=== PATIENT | female | born 1950 | race Caucasian/White ===

== ENCOUNTER 2018-06-14 17:41 | Inpatient (IN) ==
[2018-06-14] MEDS ORDERED: FUROSEMIDE 40 MG/4 ML VIAL ONE (17:50)
[2018-06-14] MEDS ORDERED: FUROSEMIDE 20 MG/2 ML VIAL ONE (17:51)
[2018-06-14] MEDS ORDERED: FUROSEMIDE 100 MG/10 ML VIAL IV STA (18:06)
[2018-06-14 18:29] LABS: Alanine Aminotransferase 38 U/L (13-56); Albumin 3.2 G/DL (3.4-5.0); Alkaline Phosphatase 95 U/L (45-117); Aspartate Amino Transferase 22 U/L (0-37); Bilirubin,Total < 0.39 MG/DL (0.2-1.0); Blood Urea Nitrogen 64 MG/DL (7-18); Calcium 8.4 MG/DL (8.5-10.1); Glucose 193 MG/DL (74-106); Osmolality,Calculated 299.5 MOS/KG (273-304); Sodium 139 MMOL/L (136-145); Total Protein 7.4 G/DL (6.4-8.3)
[2018-06-14 18:31] LABS: Basophils # 0.1 10*3/uL (0.0-0.2); Basophils % 0.6 % (0.0-0.8); Eosinophils % 0.2 % (0.00-10.9); Hematocrit 32.4 VOL% (35.7-47.0); Immature Granulocytes % 3.6 %; Immature Granulocytes Absolute 0.62 #; Lymphocytes # 1.6 10*3/uL (1.4-4.0); Lymphocytes % 9.4 % (21.3-54.2); Mean Corpuscular HGB Conc 27.8 GM/DL (32-36); Mean Corpuscular Hemoglobin 26 PG (27-34); Mean Corpuscular Volume 92.3 FL (87-102); Mean Platelet Volume 10.5 FL (9.6-12.0); Monocytes # 0.5 10*3/uL (0.11-0.8); Monocytes % 2.9 % (1.7-12.7); NRBC # 0.05 10*3/uL; Neutrophils # 14.5 10*3/uL (1.4-7.4); Neutrophils % 83.3 % (38.7-73.9); Platelet Count 248 T/CUMM (130-400); Red Blood Count 3.51 MC/CUMM (3.8-5.5); Red Cell Distribution Width 16.6 % (9.3-17.3); White Blood Count 17.4 T/CUMM (4-12)
[2018-06-14 18:32] LABS: INR 0.9
[2018-06-14] MEDS ORDERED: ETOMIDATE 20 MG/10 ML VIAL IV ONE (18:36)
[2018-06-14] MEDS ORDERED: ROCURONIUM 100 MG/10 ML VIAL IV ONE (18:37)
[2018-06-14] MEDS ORDERED: INSULIN REGULAR 100 UNIT/ML IV STA (18:44)
[2018-06-14] MEDS ORDERED: SODIUM BICARBONATE 50 MEQ/50 ML SYRINGE IV STA (18:44)
[2018-06-14] MEDS ORDERED: DEXTROSE 50% 25 GM/50 ML SYRINGE IV STA (18:44)
[2018-06-14] MEDS ORDERED: ALBUTEROL/IPRATROPIUM 3 ML NEB RESP TX PRN (18:57)
[2018-06-14] MEDS ORDERED: DEXTROSE 50% 25 GM/50 ML SYRINGE IV PRN (18:59)
[2018-06-14] MEDS ORDERED: GLUCAGON 1 MG VIAL IM PRN (18:59)
[2018-06-14] MEDS ORDERED: LEVOFLOXACIN INJ 750 MG in PREMIX 1 EACH IV SCH (19:00)
[2018-06-14] MEDS ORDERED: hydrALAZINE 20 MG/1 ML VIAL IV PRN (19:13)
[2018-06-14] MEDS ORDERED: SODIUM CHLORIDE 0.9% IV ONE (19:24)
[2018-06-14] MEDS ORDERED: AMINOPHYLLINE IV ONE (19:24)
[2018-06-14 19:38] LABS: Anisocytosis Slight; Lymphocytes 15 % (20-55); Myelocytes 1 %; Segmented Neutrophils 83 % (50-85); Total Cells Counted 100
[2018-06-14 19:39] LABS: Polychromasia Slight
[2018-06-14 19:41] LABS: Microcytosis Slight; Spherocytes Slight
[2018-06-14 19:42] LABS: Platelet Estimate Normal; Stomatocytes Few
[2018-06-14] MEDS: ALBUTEROL/IPRATROPIUM 3 ML NEB RESP TX SCH (20:08)
[2018-06-14] MEDS ORDERED: INSULIN REGULAR 100 UNIT/ML SUBCUT ONE (21:25)
[2018-06-14] MEDS ORDERED: SODIUM POLYSTYRENE SULFATE 15 GM/60 ML BOTTLE PO STA (21:27)
[2018-06-14] MEDS: methylPREDNISolone SOD SUC 40 MG/1 ML VIAL IV SCH (21:45)
[2018-06-14] MEDS: FUROSEMIDE 100 MG/10 ML VIAL IV SCH (21:45)
[2018-06-14] MEDS: ENOXAPARIN 40 MG/0.4 ML SYRINGE SUBCUT SCH (21:56)
[2018-06-15] MEDS: AMINOPHYLLINE 500 MG in SODIUM CHLORIDE 0.9% 480 ML IV SCH ×3 (00:48→22:36)
[2018-06-15] MEDS: PIPERACILLIN/TAZOBACTAM 3,375 MG in SODIUM CHLORIDE 0.9% 100 ML IV SCH ×3 (00:54→17:13)
[2018-06-15] MEDS: ALBUTEROL/IPRATROPIUM 3 ML NEB RESP TX SCH ×5 (01:06→23:58)
[2018-06-15] MEDS: NITROGLYCERIN 2% OINT 1 INCH/GM PACK TOP SCH ×4 (02:50→22:36)
[2018-06-15] MEDS: INSULIN REGULAR 100 UNIT/ML SUBCUT SCH ×4 (02:56→19:00)
[2018-06-15 03:49] LABS: Calcium 8.7 MG/DL (8.5-10.1); Thyroid Stimulating Hormone 1.34 uIU/ml (0.358-3.74)
[2018-06-15 04:01] LABS: Basophils # 0.1 10*3/uL (0.0-0.2); Basophils % 0.4 % (0.0-0.8); Eosinophils % 0.1 % (0.00-10.9); Hematocrit 30.7 VOL% (35.7-47.0); Immature Granulocytes % 3.9 %; Immature Granulocytes Absolute 0.54 #; Lymphocytes # 0.6 10*3/uL (1.4-4.0); Lymphocytes % 4.4 % (21.3-54.2); Mean Corpuscular Hemoglobin 26 PG (27-34); Mean Corpuscular Volume 91.4 FL (87-102); Mean Platelet Volume 10.4 FL (9.6-12.0); Monocytes # 0.1 10*3/uL (0.11-0.8); Monocytes % 0.9 % (1.7-12.7); NRBC # 0.06 10*3/uL; Neutrophils # 12.7 10*3/uL (1.4-7.4); Neutrophils % 90.3 % (38.7-73.9); Platelet Count 229 T/CUMM (130-400); Red Blood Count 3.36 MC/CUMM (3.8-5.5); Red Cell Distribution Width 16.4 % (9.3-17.3)
[2018-06-15 04:02] LABS: Hemoglobin 8.6 GM/DL (12.0-16.0)
[2018-06-15 04:33] LABS: Band Neutrophils 1 % (0-10); Lymphocytes 2 % (20-55); Segmented Neutrophils 97 % (50-85); Total Cells Counted 100
[2018-06-15 04:34] LABS: Anisocytosis 1+; Hypochromasia 1+; Platelet Estimate Adequate
[2018-06-15] MEDS: methylPREDNISolone SOD SUC 40 MG/1 ML VIAL IV SCH ×4 (06:19→22:31)
[2018-06-15] MEDS: FUROSEMIDE 100 MG/10 ML VIAL IV SCH ×4 (06:20→22:27)
[2018-06-15] MEDS: INSULIN GLARGINE 100 UNIT/ML SUBCUT SCH (09:59)
[2018-06-15] MEDS: ONDANSETRON 4 MG/2 ML VIAL IV PRN (16:25)
[2018-06-15] MEDS: ENOXAPARIN 40 MG/0.4 ML SYRINGE SUBCUT SCH (19:24)
[2018-06-15] MEDS: LORazepam 2 MG/1 ML VIAL IV PRN (22:33)
[2018-06-16] MEDS: INSULIN REGULAR 100 UNIT/ML SUBCUT SCH ×4 (00:56→18:08)
[2018-06-16] MEDS: PIPERACILLIN/TAZOBACTAM 3,375 MG in SODIUM CHLORIDE 0.9% 100 ML IV SCH ×2 (00:57→09:41)
[2018-06-16] MEDS: FUROSEMIDE 100 MG/10 ML VIAL IV SCH ×4 (03:30→21:59)
[2018-06-16] MEDS: methylPREDNISolone SOD SUC 40 MG/1 ML VIAL IV SCH ×4 (03:37→21:59)
[2018-06-16] MEDS: NITROGLYCERIN 2% OINT 1 INCH/GM PACK TOP SCH ×4 (03:39→21:59)
[2018-06-16 05:36] LABS: Calcium 8.5 MG/DL (8.5-10.1); Potassium 4.4 MMOL/L (3.5-5.1)
[2018-06-16 06:21] LABS: Basophils % 0.1 % (0.0-0.8); Eosinophils % 0.1 % (0.00-10.9); Hematocrit 30.9 VOL% (35.7-47.0); Hemoglobin 8.7 GM/DL (12.0-16.0); Immature Granulocytes % 2.8 %; Lymphocytes # 0.7 10*3/uL (1.4-4.0); Lymphocytes % 3.8 % (21.3-54.2); Mean Corpuscular HGB Conc 28.2 GM/DL (32-36); Mean Corpuscular Hemoglobin 25 PG (27-34); Mean Corpuscular Volume 90.1 FL (87-102); Mean Platelet Volume 10.4 FL (9.6-12.0); Monocytes # 0.7 10*3/uL (0.11-0.8); Monocytes % 3.8 % (1.7-12.7); NRBC # 0.12 10*3/uL; Neutrophils # 16.2 10*3/uL (1.4-7.4); Neutrophils % 89.4 % (38.7-73.9); Platelet Count 259 T/CUMM (130-400); Red Blood Count 3.43 MC/CUMM (3.8-5.5); Red Cell Distribution Width 16.6 % (9.3-17.3); White Blood Count 18.1 T/CUMM (4-12)
[2018-06-16 06:27] LABS: Lymphocytes 1 % (20-55); Segmented Neutrophils 97 % (50-85); Total Cells Counted 100
[2018-06-16 06:28] LABS: Hypochromasia 1+; Microcytosis 1+; Polychromasia Slight; Stomatocytes Slight
[2018-06-16] MEDS: ALBUTEROL/IPRATROPIUM 3 ML NEB RESP TX SCH ×2 (07:23→14:40)
[2018-06-16] MEDS: AMINOPHYLLINE 500 MG in SODIUM CHLORIDE 0.9% 480 ML IV SCH (07:44)
[2018-06-16] MEDS: INSULIN GLARGINE 100 UNIT/ML SUBCUT SCH (09:42)
[2018-06-16] MEDS ORDERED: KETOROLAC 15 MG/1 ML VIAL IV PRN (13:34)
[2018-06-16] MEDS ORDERED: traMADol 50 MG TABLET PO PRN (15:59)
[2018-06-16] MEDS: ENOXAPARIN 40 MG/0.4 ML SYRINGE SUBCUT SCH (18:08)
[2018-06-16] MEDS: ONDANSETRON 4 MG/2 ML VIAL IV PRN (19:27)
[2018-06-17] MEDS: INSULIN REGULAR 100 UNIT/ML SUBCUT SCH ×4 (00:43→18:34)
[2018-06-17] MEDS: FUROSEMIDE 100 MG/10 ML VIAL IV SCH ×4 (03:19→22:24)
[2018-06-17] MEDS: methylPREDNISolone SOD SUC 40 MG/1 ML VIAL IV SCH ×4 (03:20→22:24)
[2018-06-17] MEDS: NITROGLYCERIN 2% OINT 1 INCH/GM PACK TOP SCH ×4 (03:20→22:25)
[2018-06-17] MEDS: LORazepam 2 MG/1 ML VIAL IV PRN (08:32)
[2018-06-17] MEDS: INSULIN GLARGINE 100 UNIT/ML SUBCUT SCH (09:07)
[2018-06-17] MEDS ORDERED: TUBERCULIN SKIN TEST 0.1 ML SYRINGE INTRADERM ONE (15:55)
[2018-06-17] MEDS: ENOXAPARIN 40 MG/0.4 ML SYRINGE SUBCUT SCH (18:45)
[2018-06-18] MEDS: INSULIN REGULAR 100 UNIT/ML SUBCUT SCH ×5 (00:43→17:45)
[2018-06-18] MEDS: FUROSEMIDE 100 MG/10 ML VIAL IV SCH ×4 (04:53→21:10)
[2018-06-18] MEDS: methylPREDNISolone SOD SUC 40 MG/1 ML VIAL IV SCH ×4 (04:53→21:09)
[2018-06-18] MEDS: NITROGLYCERIN 2% OINT 1 INCH/GM PACK TOP SCH ×4 (05:00→21:14)
[2018-06-18] MEDS: INSULIN GLARGINE 100 UNIT/ML SUBCUT SCH (09:12)
[2018-06-18] MEDS: ENOXAPARIN 40 MG/0.4 ML SYRINGE SUBCUT SCH (18:00)
[2018-06-19] MEDS: INSULIN REGULAR 100 UNIT/ML SUBCUT SCH ×2 (00:51→05:24)
[2018-06-19] MEDS: FUROSEMIDE 100 MG/10 ML VIAL IV SCH (03:11)
[2018-06-19] MEDS: methylPREDNISolone SOD SUC 40 MG/1 ML VIAL IV SCH (03:13)
[2018-06-19] MEDS: NITROGLYCERIN 2% OINT 1 INCH/GM PACK TOP SCH ×2 (03:18→08:16)
[2018-06-19] MEDS: LORazepam 2 MG/1 ML VIAL IV PRN (05:24)
[2018-06-19 07:51] VITALS: BP 149/96
[2018-06-19] MEDS: INSULIN GLARGINE 100 UNIT/ML SUBCUT SCH (08:14)
== END 2018-06-19 08:30 | disposition hospice, inpatient (51) | DRG 291 ==
LOC: EDUNIT# → EDBD → N.ED 17:41 → SUATTDRO 18:42 → N.EDINP 18:42 → N.3E 20:05
PROVIDERS: ADMIT Hospitalist; ATTEND Internal Medicine